=== PATIENT | female | born 1940 | race Caucasian/White ===

== ENCOUNTER 2016-07-18 16:04 | Outpatient (CLI) | payer BC | END 2016-07-18 19:37 | disposition home or self-care (01) | LOC: SMA 16:04 | PROVIDERS: ATTEND Specialist | DX: Z12.31 Encounter for screening mammogram for malignant neoplasm of breast (principal) | CPT/HCPCS: G0202 ==

== ENCOUNTER 2017-11-20 15:19 | Outpatient (CLI) | payer OTHER | END 2017-11-20 18:50 | disposition home or self-care (01) | LOC: SMA 15:19 | DX: Z12.31 Encounter for screening mammogram for malignant neoplasm of breast (principal) | CPT/HCPCS: 77067 ==

== ENCOUNTER 2019-03-22 08:23 | Outpatient (CLI) | payer OTHER | END 2019-03-22 19:21 | disposition home or self-care (01) | LOC: SMA 08:23 | DX: Z12.31 Encounter for screening mammogram for malignant neoplasm of breast (principal) | CPT/HCPCS: 77067 ==

== ENCOUNTER 2021-02-12 10:27 | Outpatient (CLI) | payer OTHER | END 2021-02-12 19:09 | disposition home or self-care (01) | LOC: SMA 10:27 | DX: Z12.31 Encounter for screening mammogram for malignant neoplasm of breast (principal); N64.89 Other specified disorders of breast; R59.0 Localized enlarged lymph nodes | CPT/HCPCS: 77067 ==

== ENCOUNTER 2022-06-26 12:30 | Outpatient (CLI) | payer OTHER | END 2022-06-27 19:05 | disposition home or self-care (01) | LOC: SMA 12:30 | PROVIDERS: ATTEND Specialist | DX: Z12.31 Encounter for screening mammogram for malignant neoplasm of breast (principal) | CPT/HCPCS: 77067 ==